=== PATIENT | male | born 1990 | race Caucasian/White ===

== ENCOUNTER 2017-01-21 19:55 | Emergency (ER) | payer BC ==
[~2017-01-21] VITALS: Ht 180.3 cm; Wt 90.7 kg
[2017-01-21] MEDS ORDERED: LATUDA60 MG PO (21:15)
[2017-01-21] MEDS ORDERED: KLONOPIN1 MG PO (21:15)
[2017-01-21] MEDS ORDERED: TRAZODONE HCL100 MG PO (21:16)
[2017-05-22] MEDS ORDERED: MINIPRESS2 MG PO (22:03)
[2017-05-22] MEDS ORDERED: MELATONIN5 M2 PO (22:04)
== END 2017-01-21 21:02 | disposition short-term general hospital (02) ==
LOC: ER 19:55
DX: M54.5 Low back pain (principal); F17.210 Nicotine dependence, cigarettes, uncomplicated; Z88.2 Allergy status to sulfonamides; Z79.4 Long term (current) use of insulin; Z79.899 Other long term (current) drug therapy